=== PATIENT | female | born 1945 | race Caucasian/White ===

== ENCOUNTER 2016-10-24 14:57 | Inpatient (IN) | payer MEDICARE, OTHER ==
[~2016-10-24] VITALS: Ht 170.2 cm; Wt 87.4 kg
[2016-10-24] VITALS (18 sets, daily range): BP systolic 105–141; BP diastolic 69–100; BMI 29.8
--- NOTE | ~2016-10-24 | HEMODYNAMI ---
PATIENT:ASHLEY BULL MEDICAL RECORD: [id number] : 47 LOCATION:[facility] D.CV08 ADMISSION DATE: 10/24/16 Generatedon:10/24/201618:38 Patient name: ASHLEY BULL Patient #: [id number] SSN: [id number] : 1945 Date of study: 10/24/2016 Page: Of Hemodynamic Procedure Report Patient Data Patient Demographics Procedure consent was obtained First Name: ASHLEY Gender: Female Last Name: JORGITO : 1945 Middle Initial: M Age: 71 year(s) Patient #: [id number] Race: SSN: [id number] Additional ID: [id number] Contact details Address: [address] [place] [address] State: [place] City: [place] Zip code: [address] Past Medical History Allergies Allergen Reaction Date Comments Reported Other allergy 11/20/2015 codeine,hydrocodone Other allergy 02/26/2016 Hydrocodone, codeine Admission Admission Data Admission Date: 10/24/2016 Admission Time: 18:36 Admit Source: Emergency department Room #: D.CV08 Procedure Procedure Types Cath Procedure Diagnostic Procedure C [facility] w/Coronaries PCI Procedure Coronary Stent Initial PTCA Initial Miscellaneous Procedures Moderate Sedation up to 15 minutes Procedure Description Procedure Date Procedure Date: 10/24/2016 Procedure Start Time: 16:33 Procedure End Time: 18:36 Procedure Staff Name Function Tereso Bolivar MD Performing Physician Abraham Alegria RT Scrub Jody Mccurdy RN Nurse Raquel Crenshaw RT Monitor Procedure Data Cath Procedure Fluoroscopy Diagnostic fluoroscopy Total fluoroscopy Time: time: 26.9 min 26.9 min Diagnostic fluoroscopy Total fluoroscopy dose: dose: 2402 mGy 2402 mGy Contrast Material Contrast Material Type Amount (ml) Isovue 300 238 Entry Location Entry Primary Successful Side Size Upsize Upsize Entry Closure Succes sful Closure Location (Fr) 1 (Fr) 2 (Fr) Remarks Device Remarks Femoral Right 5 Fr vein Femoral Right 4 Fr 6 Fr artery Short Estimated blood loss: 10 ml Diagnostic catheters Device Type Used For End Catheter Placement Cordis 5Fr JL 4.0 Procedure Catheter (MP) Cordis 5Fr 3DRC Catheter Procedure (MP) Procedure Medications Medication Administration Route Dosage Oxygen NRB 16 l/min Zofran I.V. 2 mg Angiomax (bolus) I.V. 11 ml Angiomax Drip I.V. drip 27 ml/hr (250mg/50ml NS) (Standard) Morphine I.V. 2 mg Morphine I.V. 2 mg Morphine I.V. 2 mg Angiomax Drip 27 ml/hr (250mg/50ml NS) (Standard) 0.9% NaCl I.V. 300 ml/hr Oxygen NC 4 l/min Amiodarone Loading 150 mg Dose (150mg/100ml D5W) Oxygen NRB 16 l/min Hemodynamics Rest Heart Rate: 55 (bpm) Snapshots Pre Cath Intra NCS Post Cath Vital Signs Time Heart Resp SPO2 etCO2 QO6sdgh NIBP (mmHg) Rhythm Pain Sedat ion Rate (ipm) (%) (mmHg) (mmHg) Status Level (bpm) 16:29:17 56 25 86 0 0 116/89(98) SB 0 (11) 10(A) , No pain 16:33:21 55 21 86 0 0 120/92(106) SB 0 (11) 10(A) , No pain 16:37:27 56 24 95 0 0 130/94(107) SB 0 (11) 10(A) , No pain 16:41:36 56 19 97 0 0 129/91(108) SB 0 (11) 10(A) , No pain 16:45:48 57 23 95 0 0 142/84(124) SB 0 (11) 10(A) , No pain 16:50:02 55 20 98 0 0 132/95(107) SB 0 (11) 10(A) , No pain 16:54:14 53 19 98 0 0 133/85(112) SB 0 (11) 10(A) , No pain 16:58:24 57 19 98 0 0 131/95(112) SB 0 (11) 10(A) , No pain 17:02:34 55 21 99 0 0 131/93(107) NSR 0 (11) 10(A) , No pain 17:06:44 63 27 99 0 0 137/94(115) NSR 0 (11) 10(A) , No pain 17:11:43 63 28 98 0 0 Measuring NSR w/ ST 0 (11) 10(A) Elevation , No pain 17:12:13 62 27 99 0 0 120/80(114) NSR w/ ST 0 (11) 10(A) Elevation , No pain 17:17:13 62 25 99 0 0 Measuring NSR w/ ST 0 (11) 10(A) Elevation , No pain 17:18:28 62 19 97 0 0 145/131(140) NSR w/ ST 0 (11) 10(A) Elevation , No pain 17:22:44 68 17 98 0 0 126/92(108) NSR w/ ST 0 (11) 10(A) Elevation , No pain 17:26:54 62 23 98 0 0 115/92(108) NSR w/ ST 0 (11) 10(A) Elevation , No pain 17:31:00 60 21 96 0 0 126/90(106) NSR w/ ST 0 (11) 10(A) Elevation , No pain 17:35:10 67 23 96 0 0 128/91(109) NSR w/ ST 0 (11) 10(A) Elevation , No pain 17:39:22 61 22 94 0 0 118/86(108) NSR w/ ST 0 (11) 10(A) Elevation , No pain 17:43:27 59 16 96 0 0 122/91(109) NSR w/ ST 0 (11) 10(A) Elevation , No pain 17:47:35 59 12 94 0 0 119/89(103) NSR w/ ST 0 (11) 10(A) Elevation , No pain 17:51:45 56 15 95 0 0 114/82(105) SB 0 (11) 10(A) , No pain 17:55:51 58 19 94 0 0 121/87(96) SB 0 (11) 10(A) , No pain 17:59:59 62 24 94 0 0 119/85(102) SB 0 (11) 10(A) , No pain 18:04:09 54 13 94 0 0 122/82(100) SB 0 (11) 10(A) , No pain 18:08:16 56 22 94 0 0 113/79(98) SB 0 (11) 10(A) , No pain 18:12:22 56 27 94 0 0 116/84(100) SB 0 (11) 10(A) , No pain 18:18:25 108 22 98 0 0 122/101(109) A-Fib 0 (11) 10(A) , No pain 18:22:30 130 24 92 0 0 132/106(121) A-Fib 0 (11) 10(A) , No pain 18:26:40 103 21 91 0 0 141/111(121) A-Fib 0 (11) 10(A) , No pain 18:30:50 90 17 99 0 0 133/95(116) A-Fib 0 (11) 10(A) , No pain 18:34:58 78 19 100 0 0 119/94(103) A-Fib 0 (11) 10(A) , No pain Medications Time Medication Route Dose Verified Delivered Reason Note s Effectiveness by by 16:31:28 Oxygen NRB 16 Tereso Buffie Per physician l/min Katt Mccurdy RN, MD 16:32:53 Zofran I.V. 2 mg Tereso Buffie Per physician Katt Mccurdy RN, MD 16:43:35 Angiomax I.V. 11 ml Tereso Buffie for (bolus) Katt Mccurdy RN anticoagulation 16:44:36 Angiomax I.V. drip 27 Tereso Buffie for Drip ml/hr Katt Mccurdy RN anticoagulation (250mg/50ml NS) (Standard) 17:10:50 Morphine I.V. 2 mg Tereso Buffie Katt Mccurdy RN, MD 17:14:18 Morphine I.V. 2 mg Tereso Buffie Katt Mccurdy RN, MD 17:43:05 Morphine I.V. 2 mg Tereso Buffie Katt Mccurdy RN, MD 17:45:01 0.9% NaCl I.V. 300 Tereso Buffie Per physician ml/hr Katt Mccurdy RN, MD 17:45:43 Oxygen NC 4 Tereso Buffie Per physician l/min Katt Mccurdy RN, MD 17:46:07 Angiomax I.V. 27 Tereso Buffie for Drip drip-stopped ml/hr Katt Mccurdy RN anticoagulation (250mg/50ml NS) (Standard) 18:23:40 Oxygen NRB 16 Tereso Buffie for low 02 sats l/min Katt Mccurdy RN, MD 18:25:21 Amiodarone I.V. drip 150 Tereso Vera for arrhythmia Loading Dose over 10 mg Katt Mccurdy RN (150mg/100ml minutes D5W) Procedure Log Time Note 16:14:23 Admit Source: Emergency department 16:14:34 Procedure type changed to Cath procedure, Diagnostic procedure, LHC, LHC w/Coronaries, PCI procedure, Coronary Stent Initial, PTCA Initial, Miscellaneous Procedures, Moderate Sedation up to 15 minutes 16:15:08 Diagnostic Cath status Emergency 16:15:11 Jody Mccurdy RN sent for patient. Start room use. 16:15:12 Time tracking: Call back 16:16:13 Use device set Femoral Dx 16:19:27 Plan of Care:Hemodynamics will remain stable., Cardiac rhythm will remain stable., Comfort level will be maintained., Respiratory function will remain adequate., Patient/ family verbilizes understanding of procedure., Procedure tolerated without complication., Recovers from procedure without complications.. 16:19:34 Patient arrives emergently. 16:22:17 Patient received from ED to CCL 1 Alert and oriented. Tansferred to table in Supine position. 16:22:18 Warm blankets applied, and octavio hugger turned on for patient comfort. 16:22:20 Correct patient and procedure confirmed by team. 16:22:27 Signed procedure consent form obtained from patient. 16:28:19 ECG and BP/O2 sat monitors applied to patient. 16:28:21 Vital chart was started 16:28:22 Baseline sample Acquired. 16:28:27 Full Disclosure recording started 16:28:36 H&P Date Dictated: 10/24/2016 Emergent; H&P N/A. 16:28:37 Pre-procedure instructions explained to patient. 16:28:40 Family in waiting room. 16:28:52 Is patient on blood thinner?No 16:29:02 Snore? Yes 16:29:04 Sleep apnea? No 16:29:09 Dentures? No ? 16:29:20 IV patent on arrival in right hand with 0.9% NaCl at O. 16:29:25 Lab results completed and on chart. 16:29:29 Right groin area was prepped with chlora-prep and draped in sterile fashion 16:29:35 Alarms reviewed by Troy Leon 16:29:36 Sharps counted by scrub and verified by R.N. 16:29:37 Physician arrived 16::38 --------ALL STOP TIME OUT------ 16::39 Final Timeout: patient, procedure, and site verified with staff and physician. All members of the team are in agreement. 16:29:42 Right groin site verified by team. 16:29:50 Sedation plan: IV Moderate Sedation Versed, Fentanyl 16:31:28 Oxygen 16 l/min NRB was administered by Jody Mccurdy RN; Per physician; 16:32:53 Zofran 2 mg I.V. was administered by Jody Mccurdy RN; Per physician; 16:33:04 Zero performed for pressure channel P1 16:33:09 Zero performed for pressure channel P1 16:33:21 Procedure started. 16:33:26 Local anesthetic to right femoral artery with Lidocaine 2% by Tereso Bolivar MD.INITIAL ACCESS ONLY 16:33:32 Zero performed for pressure channel P1 16:33:52 A 5 Fr sheath was inserted into the Right Femoral vein 16:34:01 Acist Syringe opened to sterile field. 16:34:01 Bag Decanter opened to sterile field. 16:34:02 Medline Cath Pack opened to sterile field. 16:34:02 Terumo 5Fr [place] Sheath opened to sterile field. 16:34:03 St Jaswinder 260cm J .035 wire opened to sterile field. 16:34:04 Acist Hand Control opened to sterile field. 16:34:05 Acist Manifold opened to sterile field. 16:34:05 Diagnostic Infinity 5Fr Multipack catheter opened to sterile field. 16:34:08 Tegaderm 4 x 4 opened to sterile field. 16:34:19 Micropuncture VSI 4FR kit opened to sterile field. 16:35:04 A 4 Fr sheath was inserted into the Right Femoral artery 16:37:07 Sheath upsized to a 6 Fr Short. 16:37:31 Terumo 6Fr [place] Sheath opened to sterile field. 16:38:05 A Cordis 5Fr JL 4.0 Catheter (MP) was advanced over the wire and used for Procedure. 16:38:24 LCA angiography performed. 16:43:10 A Cordis 5Fr 3DRC Catheter (MP) was advanced over the wire and used for Procedure. 16:43:13 Catheter removed. 16:43:16 Cordis 6FR XBLAD 4.0 guide catheter opened to sterile field. 16:43:34 Milian BMW Escalante 2 J-tip 300cm 0.014 guide wir opened to sterile field. 16:43:35 Angiomax (bolus) 11 ml I.V. was administered by Jody Mccurdy RN; for anticoagulation; 16:43:55 Merit BasixCompak Inflation Kit opened to sterile field. 16:44:36 Angiomax Drip (250mg/50ml NS) (Standard) 27 ml/hr I.V. drip was administered by Jody Mccurdy RN; for anticoagulation; 16:45:00 Copilot Bleedback Control Valve opened to sterile field. 16:45:28 Inflation number: 1 A Euphora 2.0 x 15 Balloon was prepped and advanced across the Mid CX, then inflated to 13 SAMANTHA for 0:08 (min:sec). 16:45:48 multi inflations 16:45:57 Inflation number: 1 The Euphora 2.0 x 15 Balloon was reinflated across the Ramus, to 13 SAMANTHA for 0:09 (min:sec). 16:49:17 multi inflations 16:49:24 Milian BMW Escalante 2 J-tip 300cm 0.014 guide wir opened to sterile field. 16:50:03 second wire down cx 16:50:48 Inflation number: 2 A Mozec Rx 3.0 x 20 balloon was prepped and advanced across the Ramus, then inflated to 13 SAMANTHA for 0:10 (min:sec). 16:57:27 Milian Whisper J 300cm 0.014 guide wire opened to sterile field. 16:57:49 Balloon removed over the wire. 17:02:43 Whisper Wire advanced across lesion. 17:04:33 Inflation number: 2 The Mozec Rx 3.0 x 20 balloon was reinflated across the Mid CX, to 13 SAMANTHA for 0:10 (min:sec). 17:06:49 Inflation number: 3 The Mozec Rx 3.0 x 20 balloon was reinflated across the Ramus, to 13 SAMANTHA for 0:10 (min:sec). 17:08:12 Inflation number: 4 The Mozec Rx 3.0 x 20 balloon was reinflated across the Ramus, to 5 SAMANTHA for 0:00 (min:sec). 17:09:18 Inflation number: 5 The Mozec Rx 3.0 x 20 balloon was reinflated across the Ramus, to 9 SAMANTHA for 0:00 (min:sec). 17:09:54 Inflation number: 6 The Mozec Rx 3.0 x 20 balloon was reinflated across the Ramus, to 4 SAMANTHA for 0:10 (min:sec). 17:10:50 Morphine 2 mg I.V. was administered by Jody Mccurdy RN; ; 17:14:17 Inflation number: 7 A [place] Sci [place] 2.0 X 15 balloon was prepped and advanced across the Ramus, then inflated to 13 SAMANTHA for 0:00 (min:sec). 17:14:18 Morphine 2 mg I.V. was administered by Jody Mccurdy RN; ; 17:14:32 Inflation number: 8 The [place] Sci [place] 2.0 X 15 balloon was reinflated across the Ramus, to 13 SAMANTHA for 0:00 (min:sec). 17:15:30 Balloon removed over the wire. 17:19:34 Inflation Number: 9 A Milian Mini Vision Rx 2.0 x 28 stent was prepped and advanced across the Ramus. The stent was deployed at 9 SAMANTHA for 0:10 (min:sec). 17:19:45 Stent catheter was removed intact over wire. 17:23:09 Inflation Number: 10 A Milian Mini Vision Rx 2.0 x 18 stent was prepped and advanced across the Ramus. The stent was deployed at 10 SAMANTHA for 0:00 (min:sec). 17:26:05 Balloon removed over the wire. 17:31:06 Inflation number: 11 The [place] Sci [place] 2.0 X 15 balloon was reinflated across the Ramus, to 13 SAMANTHA for 1:30 (min:sec). 17:32:17 Inflation number: 12 The [place] Sci [place] 2.0 X 15 balloon was reinflated across the Ramus, to 13 SAMANTHA for 0:00 (min:sec). 17:40:48 Inflation Number: 1 A Milian Graftmaster 2.80 X 19 stent was prepped and advanced across the Ramus1. The stent was deployed at 9 SAMANTHA for 3:57 (min:sec). 17:40:59 Stent catheter was removed intact over wire. 17:43:05 Morphine 2 mg I.V. was administered by Jody Mccurdy RN; ; 17:45:01 0.9% NaCl 300 ml/hr I.V. was administered by Jody Mccurdy RN; Per physician; 17:45:43 Oxygen 4 l/min NC was administered by Jody Mccurdy RN; Per physician; 17:46:07 Angiomax Drip (250mg/50ml NS) (Standard) 27 ml/hr I.V. drip-stopped was administered by Jody Mccurdy RN; for anticoagulation; 17:51:25 Wire removed. 17:51:49 BMW out of ramus 17:56:42 Suturing sheath in artery and vein 17:57:30 SUTURE SILK 2-0 BLK BR FS 18 I opened to sterile field. 17:57:31 SUTURE SILK 2-0 BLK BR FS 18 I opened to sterile field. 17:58:03 Guide catheter removed. 17:58:27 Procedure ended.(Physican Out) 18:00:42 Fluoroscopy time 26.90 minutes. 18:00:47 Flurop Dose total: 2402 18:00:47 Fluoroscopy dose: 2402 mGy 18:01:12 Contrast amount:Isovue 300 238ml. 18:01:14 Sharps counted by scrub and verified by R.N. 18:01:38 Artery and Vein lines was sutured in with 20 silk. 18:01:43 Insertion/operative site no bleeding no hematoma. 18:01:50 Post Procedure Pulses reassessed and unchanged 18:02:05 Post procedure rhythm: sinus rhythm , w/ ST elevation 18:02:09 Estimated blood loss: 10 ml 18:02:11 Post procedure instruction explained to patient.Patient verbalizes understanding. 18:03:03 Procedure and supply charges have been captured, reviewed, submitted and are correct. 18:23:40 Oxygen 16 l/min NRB was administered by Jody Mccurdy RN; for low 02 sats; 18:25:21 Amiodarone Loading Dose (150mg/100ml D5W) 150 mg I.V. drip over 10 minutes was administered by Jody Mccurdy RN; for arrhythmia; 18:36:21 Vital chart was stopped 18:36:22 See physician's report for complete and final results. 18:36:28 Report given to PCU. 18:36:32 Patient transfered to PCU with Bed. 18:36:34 Procedure ended. 18:36:34 Full Disclosure recording stopped 18:36:40 End room use (Document Last) Intervention Summary Intervention Notes Time ActionType Lesion and Equipment Action# Pressure Duration Attributes Used 16:45:28 Inflate Mid CX Euphora 2.0 1 13 00:08 balloon x 15 Balloon 16:45:57 Reinflate Ramus Euphora 2.0 1 13 00:09 balloon x 15 Balloon 16:50:48 Inflate Ramus Mozec Rx 2 13 00:10 balloon 3.0 x 20 balloon 17:04:33 Reinflate Mid CX Mozec Rx 2 13 00:10 balloon 3.0 x 20 balloon 17:06:49 Reinflate Ramus Mozec Rx 3 13 00:10 balloon 3.0 x 20 balloon 17:08:12 Reinflate Ramus Mozec Rx 4 5 00:00 balloon 3.0 x 20 balloon 17:09:18 Reinflate Ramus Mozec Rx 5 9 00:00 balloon 3.0 x 20 balloon 17:09:54 Reinflate Ramus Mozec Rx 6 4 00:10 balloon 3.0 x 20 balloon 17:14:17 Inflate Ramus [place] Sci 7 13 00:00 balloon [place] 2.0 X 15 balloon 17:14:32 Reinflate Ramus [place] Sci 8 13 00:00 balloon [place] 2.0 X 15 balloon 17:19:34 Place stent Ramus Milian Mini 9 9 00:10 Vision Rx 2.0 x 28 stent 17:23:09 Place stent Ramus Milian Mini 10 10 00:00 Vision Rx 2.0 x 18 stent 17:31:06 Reinflate Ramus [place] Sci 11 13 01:30 balloon [place] 2.0 X 15 balloon 17:32:17 Reinflate Ramus [place] Sci 12 13 00:00 balloon [place] 2.0 X 15 balloon 17:40:48 [address] stent Ramus1 Milian 1 9 03:57 Graftmaster 2.80 X 19 stent Device Usage Item Name Manufacture Quantity Catalog Number [facility] Lot# / Charge Number Stock Stock Serial# Code Acist Syringe Acist 1 88997 518284 920261 653245 Shoppilot Inc Bag Decanter Microtek 1 2001S 635094 89519 437627 Planet Daily. Medline Cath Cardinal 1 [id number] 755682 35574 366952 5 Pack Health Terumo 5Fr Terumo 1 [id number] 246224 800046 415916 [address] Jaswinder 1 425872 845195 496525 240045 30 J .035 wire Acist Hand Acist 1 89474 734565 585802 716718 5 Control Medical Systems Inc Acist Acist 1 91744 684684 099672 227061 5 [facility] Medical Systems Inc Diagnostic Cardinal 1 SH4129 822243 64548 445173 30 Infinity 5Fr Health Multipack catheter Tegaderm 4 x 3M 1 1626W 326151 782869 042895 5 4 Micropuncture VSI VASCULAR 1 7266V 510899 973929 5 VSI 4FR kit SOLUTIONS Terumo 6Fr Terumo 1 [id number] 009984 758233 558402 40 [place] Sheath Cordis 5Fr JL Cardinal 1 477761 5 4.0 Catheter Health (MP) Cordis 5Fr Cardinal 1 015066 5 3DRC Catheter Health (MP) Cordis 6FR Cardinal 1 [id number] 723682 191504 888047 3 XBLAD 4.0 Health guide catheter Milian BMW Milian 2 [id number] 677078 666469 311818 5 Escalante 2 Vascular J-tip 300cm 0.014 guide wir Merit Merit 1 WZ5559 015544 532796 261796 15 Everpix Medical Inflation Kit Copilot Milian 1 7442124 257541 971785 550514 5 Bleedback Vascular Control Valve Euphora 2.0 x Medtronic 1 [id number] 752654 127162 258313 5 [id number] 15 Balloon Milian Milian 1 [id number] 177981 681848 997525 5 Whisper J Vascular 300cm 0.014 guide wire Mozec Rx 3.0 Cardinal 1 [id number] 174850 61132 159692 5 x 20 balloon Health [place] Sci [place] 1 [id number] 305856 993227 384212 1 [id number] [place] 2.0 Scientific X 15 balloon Milian Mini Milian 1 7426051-41 559450 090322 284808 5 [id number] Vision Rx 2.0 Vascular x 28 stent Milian Mini Milian 1 3527156-47 242456 323019 492566 5 [id number] Vision Rx 2.0 Vascular x 18 stent Milian Milian 1 0937505-11 855768 277801 796126 0 [id number] Graftmaster Vascular 2.80 X 19 stent SUTURE SILK Ethicon 2 685H 334474 838383 5 2-0 BLK BR FS 18 I Signature Audit [place] Stage Time Signature Unsigned Intra-Procedure 10/24/2016 Raquel Crenshaw 6:38:33 PM RT(R) Signatures Monitor : Raquel Crenshaw Signature : RT Date : Time : [address] [place] [address]
[~2016-10-24 14:57] MED LIST: ALDACTONE25 MG PO; DIOVAN320 MG PO; MOBIC7.5 MG PO; NORVASC2.5 MG PO; RYTHMOL225 MG PO; STOOL SOFTENER100 M1 PO; TOPROL XL100 MG PO; VITAMIN D31000 UNIT PO; XARELTO20 MG PO
[2016-10-24 16:05] LABS: BASOPHILS 0.2 % (0-2); EOSINOPHILS 1.3 % (0-7); HEMATOCRIT 35.2 % (36.0-48.0); HEMOGLOBIN 10.9 g/dL (12-16); IMMATURE GRANULOCYTES 0.3 % (0-5); LYMPHOCYTES 16.5 % (15-50); MCH 26.1 pg (26.0-34.0); MCV 84.2 fL (80.0-100.0); MEAN PLATELET VOLUME 10.2 fL (7.4-10.4); MONOCYTES 5.2 % (2-11); NEUTROPHILS 76.5 % (40-80); PLATELET COUNT 245 10x3/uL (130-400); RBC 4.18 10x6/uL (4.00-5.40); RDW 18.3 % (11.5-14.5); WBC 11.8 10x3/uL (4.8-10.8)
[2016-10-24 16:14] LABS: ALBUMIN 3.2 g/dL (3.4-5.0); ALKALINE PHOSPHATASE 90 U/L (46-116); ALT (SGPT) 21 U/L (10-68); BILIRUBIN - TOTAL 0.26 mg/dL (0.2-1.3); CALC OSMOLALITY 284 mosm/kg (275-300); CALCIUM 8.6 mg/dL (8.5-10.1); CARBON DIOXIDE 30.4 mmol/L (21.0-32.0); CHLORIDE - SERUM 103 mmol/L (98-107); CREATININE - SERUM 1.1 mg/dL (0.6-1.3); GLUCOSE 169 mg/dL (74-106); POTASSIUM - SERUM 3.9 mmol/L (3.5-5.1); PROTEIN - SERUM 7.3 g/dL (6.4-8.2); SODIUM 137 mmol/L (136-145); UREA NITROGEN 31 mg/dL (7-18); eGFR NON AFRICAN AMERICAN 52 mL/min (90-120)
[2016-10-24 16:29] LABS: CHOL - HDL RATIO 2.8 ratio (2.3-4.1); CHOLESTEROL, TOTAL 236 mg/dL (0-200); CKMB 0.5 U/L (0.0-3.6); CREATINE KINASE 60 UL (21-215); HDL CHOLESTEROL 83 mg/dL (32-96); LDL CHOLESTEROL 143 mg/dL (0-100); LDL-HDL RATIO 1.7 ratio (1.5-3.5); TRIGLYCERIDE 53 mg/dL (30-200)
--- NOTE | 2016-10-24 18:44 | NUR ---
PT ARRIVED AT THIS TIME VIA BED FROM [facility]. RECIEVED REPORT FROM [facility]. PT ALERT AND ORIENTED. CONNECTED TO CONTINUOUS CARDIAC MONITORING. ART LINE IN PLACE. PT HEART RATE AT AFIB. ON NONREBREATHER AT 15 LITERS OXYGEN. CORDARONE DRIP AT 1MG PER ORDERS AND TO RUN FOR [address], URINE YELLOW IN COLOR. VITAL SIGNS: 124/86 PER ART LINE, 76 AFIB, 26 RESPIRATIONS, 98% OXYGEN SATURATION WITH 15L 02 VIA NONREBREATHER. ALSO NS AT 200ML/HOUR PER ORDERS. ALL VIA RT FEMORAL. WILL CONTINUE PLAN OF CARE.
--- NOTE | 2016-10-24 20:10 | NUR ---
AX TEMP 96.3 DEGREES FARENHEIT. JUST ATE A FEW PIECES OF ICE. PLACED ANTONIO HUGGER BLANKET ON TOP OF HER AND STARTED AT 43 DEGREES. FAMILY AT BEDSIDE VISITING.
--- NOTE | 2016-10-24 20:20 | NUR ---
ANTONIO LOZOYA TOO WARM FOR HER, TURNED SETTINGS DOWN TO LOWEST SETTINGS. TEMP STILL BELOW 97 FARENHEIT.
--- NOTE | 2016-10-24 21:31 | NUR ---
PULSES CHECKED AND PEDAL PULSES AUDIBLE BY DOPPLER. C/O PAIN BETWEEN SHOULDER BLADES AND REPORTS PAIN IS AN ACHE LIKE A PULLED MUSCLE AND THAT IT HURT LIKE THIS IN THE PROCEDURE ROOM. DR. BRISEIDA LOMBARDI-NO PAIN MEDS ORDERED.
--- NOTE | 2016-10-24 23:22 | NUR ---
EKG COMPLETED WITH CARDIAC ENZYMES. AFIB NOTED ON 12-LEAD. WILL MONITOR.
--- NOTE | 2016-10-24 23:38 | NUR ---
GETTING NAUSEATED. 100ML OF BROWN, LIQUID EMESIS INTO EMESIS BAG. BEING ASSISTED TO TURN MORE TO LEFT SIDE SINCE LAYING ALMOST FLAT. HOB AT 10 DEGREES. ZOFRAN TO BE GIVEN. CONVERTED TO SINUS RHYTHM ON THE CASING OPERATOR IN THE 50'S. BLOOD PRESSURE VIA A-LINE ALSO DECLINES SOME WITH CHANGE IN HEART RATE. C/O PAIN STILL BETWEEN SHOULDER BLADES. INFORMED OF POSSIBLE NEXT PAIN MED TIME. OFFERED TO REPOSITION, DECLINED. RT GROIN PUNCTURE SITE TO A0LINE/VENOUS PORT SITE WITH SEROSANGUINOUS DRAINAGE COVERING 2X2'S. NO ACTIVE BLEEDING NOTED DRAINING DOWN GROIN DOWN TO BED. CLOTTED, OLD BLOOD NOTED. WILL MONITOR.
[2016-10-24 23:55] LABS: CKMB 279.1 U/L (0.0-3.6)
[2016-10-24 23:58] LABS: CREATINE KINASE 5773 UL (21-215)
[2016-10-25] VITALS (50 sets, daily range): BP systolic 92–139; BP diastolic 60–86
--- NOTE | 2016-10-25 00:22 | NUR ---
DR. GOINS PAGER VIA ANSWERING SERVICES TO INFORM OF DECREASED HR, B/P AND CRITICAL LABS. RETURNED PAGE AND NEW ORDERS NOTED.
--- NOTE | 2016-10-25 00:30 | NUR ---
CORDARONE GTT D/C'ED ORDERED PER DR. GOINS. WILL MONITOR.
--- NOTE | 2016-10-25 00:40 | NUR ---
NAUSEATED THEN VOMITED 50ML OF BROWN, LIQUID EMESIS INTO EMESIS BAG. TURNED TO LEFT SIDE MORE. DOSE OF MORPHINE GIVEN PRESCRIBED FOR PAIN. DESCRIBES PAIN A 7/10 ON NUMBER SCALE BETWEEN SHOULDER BLADES. SEE PAIN ASSESSMENT.
--- NOTE | 2016-10-25 02:00 | NUR ---
ICE PACK APPLIED TO BACK BETWEEN SHOULDER BLADES PER REQUEST. REMAINS IN SINUS BRADYCARDIA RHYTHM IN THE LOWER 50'S. REMAINS OFF CORDARONE GTT.
--- NOTE | 2016-10-25 03:55 | NUR ---
EYES CLOSED. NO ACUTE DISTRESS NOTED.
--- NOTE | 2016-10-25 04:10 | NUR ---
MOVING ARMS AROUND. AWAKE. WANTING A NEW ICE PACK TO POSTERIOR BACK BETWEEN SHOULDER BLADES. OBLIGED. FOELY CATHETER CARE DUE TO OLD, DRIED BLOOD FROM RT GROIN PUNCTURE SITE. CLEANSED PERINEAL AREA AND WHEN DOING SO, GOT NAUSEATED AND TURNED TO LEFT SIDE AND HAD 125ML OF BROWN, SOME PARTICLES EMESIS. CLEANSED FACE, HAND AND LEFT SIDE OF BODY ALSO. DOES NOT WANT TO TAKE OUT OLD SHEETS FROM UNDERNEATH HER AT THIS TIME NOR DOES NOT WANT TO TURN OVER. IV ZOFRAN GIVEN PRESCRIBED. I & O'S COMPLETED. DENIES NEED FOR PAIN MEDS WILL TRY THE ICE FOR NOW. WILL KEEP NPO.
--- NOTE | 2016-10-25 05:00 | NUR ---
AM LABS DRAWN FROM RT FEMORAL A-LINE AFTER WASTING 8ML. 12-LEAD EKG COMPLETED PER YANIQUE WITH R.T. TOLERATED WELL. WILL MONITOR.
[2016-10-25 05:10] LABS: BASOPHILS 0.1 % (0-2); EOSINOPHILS 0 % (0-7); HEMATOCRIT 36.4 % (36.0-48.0); HEMOGLOBIN 11.1 g/dL (12-16); IMMATURE GRANULOCYTES 0.2 % (0-5); MCH 25.6 pg (26.0-34.0); MCHC 30.5 g/dL (31.0-37.0); MCV 84.1 fL (80.0-100.0); MONOCYTES 6.5 % (2-11); NEUTROPHILS 83.2 % (40-80); PLATELET COUNT 270 10x3/uL (130-400); RBC 4.33 10x6/uL (4.00-5.40); RDW 18.4 % (11.5-14.5); WBC 10.8 10x3/uL (4.8-10.8)
--- NOTE | 2016-10-25 06:30 | NUR ---
SHORTLY AFTER IV MORPHINE GIVEN, VOMITED PAST SIDERAIL. BROWN LIQUID WITH SMALL PARTICLE CHUNCKS. CLEANSED FACE. WILL CALL M.D. 0640: DR. GOINS CALLED REGARDING VOMITING-TOTAL OF ABOUT 350ML OVER THE 12 HOUR SHIFT. NEW ORDERS FOR PHENERGAN GIVEN. 0650: PHENERGAN GIVEN AND BED BATH AND LINEN CHANGE COMPLETED. POSTERIOR SKIN INTACT. DR. GOINS CALLED BACK AND D/C'ED IV MORPHINE AND SWITCHED PAIN MANAGEMENT TO DILAUDID. BEGAN TO SHIVER WHILE BATHING AND ANTONIO LOZOYA PLACED BACK ON UNDER HER NEW BLANKETS X2. WILL MONITOR.
[2016-10-25 06:42] LABS: CARBON DIOXIDE 23.3 mmol/L (21.0-32.0); CHLORIDE - SERUM 103 mmol/L (98-107); CKMB 286.8 U/L (0.0-3.6); CREATININE - SERUM 1.1 mg/dL (0.6-1.3); POTASSIUM - SERUM 4.7 mmol/L (3.5-5.1); SODIUM 137 mmol/L (136-145); UREA NITROGEN 30 mg/dL (7-18)
[2016-10-25 06:45] LABS: CREATINE KINASE 5421 UL (21-215); TROPONIN-I 243.183 ng/mL (0.000-0.060)
--- NOTE | 2016-10-25 08:36 | NUR ---
0715-RECIEED ASLEEP -STATES VERBALLY NO CHEST PAIN AT THIS [id number] JUGULAR DISTENTION-AUDIBLE ONLY S1S2 AND NO ADDITIONAL SOUND AT THIS TIME-R FEM PHIL IN PLACE/ VENOUSSALINE LOCKED-SITE SOFT TO TOUCH 0815-DR GOINS AT [facility] AND REVIEWED PT -DIRECTION GIVEN-PHIL REMAIN IN PLACE FOR ABP MONITORING WITH PLAN FOR REMOVAL IN AFTERNOON HOURS IF PT REMAINS STABLE -PT REMAINS ASLEEP AT THIS TIME
--- NOTE | 2016-10-25 09:48 | OP ---
PATIENT NAME: ASHLEY BULL MEDICAL RECORD: [id number] :47 LOCATION:[facility] ADMISSION DATE:10/24/16 SURGEON: TERESO GOINS MD DATE OF OPERATION: 10/24/2016 PROCEDURE: Left heart cath, LV gram, coronary angiogram, PTCA times 4, intra-arterial stenting times 3. RAILROAD AUDITOR: Tereso Goins MD PROCEDURE IN DETAIL: The patient was brought in an unstable condition with hypotension and malignant dysrhythmias into the cardiac catheterization, chest pain 8/10 and cardiogenic shock. The patient was placed on catheterization table in a supine position where the right groin was sterilely prepped and draped. We then accessed the right femoral vein as well as the right femoral artery using modified Seldinger technique in an anterograde and retrograde fashion respectively. We were then able to intubate the right coronary artery. Angiography was performed in multiple projections. We were then able to exchange the diagnostic catheters for interventional guiding catheters and we were able to intubate the left main. We were then able to take a BMW wire into the circumflex vessel and then into the ramus intermediate vessel. We were able to get distal wire position in the circumflex as well as the ramus vessel and/or itself. Multiple angioplasties were performed and the procedure was terminated partially successfully. FINDINGS: 1. Left main has mild distal plaquing. 2. The LAD is shown to have an ostial 50% to 60% stenosis. 3. The circumflex is 100% occluded flushly at the ostium. 4. The RCA is shown to be widely patent. INTERVENTION: After a double wire technique through the circumflex and the ramus intermediate vessel, we were able to reestablish flow. An angioplasty was performed in multi-layer fashion reestablishing very good brisk JUAN FRANCISCO 3 flow in the circumflex vessel and the terminal obtuse marginal branch; however, we had a heavy thrombus burden in the ramus intermediate branch and after distal angioplasty with a 3-0 balloon going up to only 3 atmospheres, we created a dissection and actually a tear in the distal ramus vessel. The patient hemodynamically was stable through that process, but to cover it, we put 2 overlapping 2.5 x 28 and 2.5 x 18 stents and then in the middle of those stents, we put a Jomed covered stent, which then did show some resolve of the mid ramus vessel dissection; however, we had continued dissection in the distal vessel. We then decided to turn off the anticoagulation and do prolonged inflations in the balloon in that vessel with the thought that we would either tamp the dissection and the transection and limit the dye extravasation or thrombose the vessel itself. The vessel did thrombose. The patient hemodynamically was very stable and the circumflex continued to have good flow and although we did call the surgeon in, it was felt that the patient was very stable by the time the surgeon was here and after consultation with the surgeon, we decided to watch the patient carefully. A bedside echocardiography was performed showing that the patient had fairly well preserved LV function with ejection fraction of 45%. There is OPERATIVE REPORT [id number] ASHLEY BULL Olena inferolateral, anterior and posterior hypokinesis. The mitral valve itself did not appear to have significant mitral regurgitation at that point. We decided to go ahead and admit the patient for good observation. IMPRESSION: A 100% occlusion of the circumflex and ramus intermediate branch with successful angioplasty of the circumflex vessel, but with poor outcome in the [place] ramus itself. We did notice at the end of the procedure; however, that there was also some spasm in the ostial LAD segment and we felt like we should watch that more closely for any signs of ischemia and potentially even bring the patient back within 2-3 days based upon clinical response. Angiomax was turned off. We will continue the Plavix and the aspirin. TRANSINT:[id number] Voice Confirmation ID: [id number] DOCUMENT ID: [id number] TERESO GOINS MD at 0948 CC: [id number] DICTATION DATE: 10/24/16 1846 WEB SITE PROJECT MANAGER: 10/24/16 1933 ADM IN [facility] [address] [id number]
[2016-10-25 11:42] LABS: CKMB 266.2 U/L (0.0-3.6)
[2016-10-25 11:43] LABS: CREATINE KINASE 5522 UL (21-215)
--- NOTE | 2016-10-25 19:00 | NUR ---
Received patient resting in bed with eyes closed, assessment completed per flowsheet. Patient AO x4, calm and cooperative. Eyes PERRLA @ 4mm with brisk response, sclera is white. S1/S2 noted NSR on telemetry with HR 84, rhythmic and regular. Breathing is even and unlabored on 2L via NC with O2 sat 99%, Lung sounds clear bilateral upper and mid with diminished lower. Abdomen is soft and flat with bowel sounds active x4, non-tender. R groin femoral A-line noted with dressing CDI, no bleeding/drainage noted and tender to palpation. A-line zeroed with good waveform on monitor. Bhatti secured in place, jaida urine noted in collection. Upper extremity pulses bounding with lower extremity weakly palpable, slight weakness noted all extremities. Skin is warm and dry to touch, cap refill < 3 sec. R hand 20g PIV noted with NS @ KVO (10ml/hr), dressing CDI. Patient c/o constant aching/tight chest pain /10, will provide PRN medication when available. Patient provided ice chips upon request, denies further needs at this time. All VSS and will continue to monitor.
--- NOTE | 2016-10-25 21:00 | NUR ---
Patient resting in bed with eyes closed, breathing is even and unlabored. Patient denies needs at this time, all VSS and will continue to monitor.
--- NOTE | 2016-10-25 23:00 | NUR ---
Reassessment completed per flowsheet, patient resting in bed with eyes closed. S1/S2 noted NSR on telemetry with HR 92, rhythmic and regular. Breathing is even and unlabored on 2L via NC, O2 sat 100%. A-line dressing CDI with good waveform on monitor, no bleeding/drainage with site soft to palpation. Patient rates constant aching pain 4/10 in chest, patient denies need for medication at this time and will provide upon request. Upper pulses bounding with lower extremity weakly palpable, skin is warm/dry to touch with cap refill < 3 sec. No further needs at this time, all VSS and will continue to monitor.
[2016-10-26] VITALS (17 sets, daily range): BP systolic 100–125; BP diastolic 56–97; Ht 170.2 cm; Wt 87.4 kg
--- NOTE | 2016-10-26 01:00 | NUR ---
Patient resting in bed with eyes closed, breathing is even and unlabored. Patient repositioned for comfort, denies other needs at this time. All VSS and will continue to monitor.
--- NOTE | 2016-10-26 01:45 | NUR ---
Patient awake in bed c/o constant chest pain 09/21, PRN medication provided and ice bag applied to upper back for pain relief. Patient disoriented to time, but aware of circumstances and location. Reoriented and education provided on pain medication availability, patient states understanding. Will reassess PRN medication per protocol, all VSS and will continue to monitor.
--- NOTE | 2016-10-26 02:25 | NUR ---
Lovenox held, sheath to be removed this AM. Will notify Dr Bolivar this morning.
--- NOTE | 2016-10-26 02:59 | NUR ---
Reassessment completed per flowsheet, patient resting in bed with eyes closed. S1/S2 noted NSR on telemetry with HR 99, rhythmic and regular. Breathing is even and unlabored on 2L via NC, O2 sat 96%. Upper pulses palpable with lower pulses weakly palpable, cap refill < 3 sec with skin warm/dry to touch. R femoral A-line dressing CDI, zeroed with good waveform on telemetry. Patient resting after PRN medication given, rates pain 3/10 constant chest. No further needs at this time, all VSS and will continue to monitor.
--- NOTE | 2016-10-26 05:00 | NUR ---
Patient resting in bed with eyes closed, no AM labs scheduled today. Patient provided ice chips upon request, repositioned for comfort. All pulses weakly palpable with skin cool/dry to touch, cap refill < 3 sec. Warm blanket provided and patient states she is "comfortable". No further needs at this time, all VSS and will continue to monitor.
--- NOTE | 2016-10-26 06:05 | NUR ---
Patient appears to be having regular PAC's on telemetry, STAT labs ordered to check potassium levels.
--- NOTE | 2016-10-26 06:27 | NUR ---
Spoke to Dr Bolivar, notified about patient having regular PAC's. New orders received for Cordarone 200mg PO BID, also to hold Lovenox for sheath removal today. Lab collected sample and will review when resulted. Will continue to monitor.
--- NOTE | 2016-10-26 06:30 | NUR ---
Patient HR V-Tach/V-Fib on telemetry, Dr Bolivar notified. 150mg bolus Codarone given, 300mg Bolus to be given upon completion. O2 increased to 6L via NC per orders.
[2016-10-26 06:32] LABS: BASOPHILS 0.1 % (0-2); EOSINOPHILS 0.1 % (0-7); HEMOGLOBIN 10.2 g/dL (12-16); IMMATURE GRANULOCYTES 0.4 % (0-5); LYMPHOCYTES 9.9 % (15-50); MCH 25.8 pg (26.0-34.0); MCV 85.9 fL (80.0-100.0); MEAN PLATELET VOLUME 10.9 fL (7.4-10.4); MONOCYTES 12.3 % (2-11); NEUTROPHILS 77.2 % (40-80); RBC 3.96 10x6/uL (4.00-5.40); RDW 18.9 % (11.5-14.5)
[2016-10-26 06:35] LABS: PLATELET COUNT 197 10x3/uL (130-400); WBC 13.6 10x3/uL (4.8-10.8)
--- NOTE | 2016-10-26 06:50 | NUR ---
Dr Bolivar arrived in patient room, assumed care of patient. Report given to Akua LONGO, care assumed by oncoming shift.
[2016-10-26 06:55] LABS: ALBUMIN 2.6 g/dL (3.4-5.0); ANION GAP 9.9 mmol/L (8-16); BILIRUBIN - TOTAL 0.37 mg/dL (0.2-1.3); CALCIUM 8.3 mg/dL (8.5-10.1); CARBON DIOXIDE 28.6 mmol/L (21.0-32.0); CREATININE - SERUM 1.2 mg/dL (0.6-1.3); POTASSIUM - SERUM 4.5 mmol/L (3.5-5.1); PROTEIN - SERUM 6.7 g/dL (6.4-8.2)
[2016-10-26 07:32] LABS: CKMB 68.5 U/L (0.0-3.6); CREATINE KINASE 3706 UL (21-215)
[2016-10-26 07:34] LABS: TROPONIN-I 110.722 ng/mL (0.000-0.060)
--- NOTE | 2016-10-26 12:30 | NUR ---
ATRIAL RHYTHM NOTED. HR 140. LOPRESSOR 2.5MG ORDERED.
--- NOTE | 2016-10-26 15:31 | NUR ---
DR GOINS CALLED FOR ATRIAL RHYTHM. LANOXIN 0.5 MG ORDERED.
--- NOTE | 2016-10-26 16:00 | NUR ---
DR GOINS HERE ASSESSING PT.
--- NOTE | 2016-10-26 17:30 | NUR ---
BATH GIVEN LINENS CHANGED.
--- NOTE | 2016-10-26 18:00 | NUR ---
DAUGHTER AT BEDSIDE ASK FOR UPDATE. WALKED IN ROOM PT HAVING L SIDED DROOPING MOUTH. L SIDED WEAKNESS IN ARM. L PARALYSIS IN LEG. DR GOINS CALLED. NOT A CANDIDATE FOR AR SAVES. LAST KNOWN TIME OF PT BEING OK IS 1729. CT OF HEAD ORDERED. DR FOREMAN CALLED PER DR GOINS.
[2016-10-26 18:08] LABS: CKMB 28.1 U/L (0.0-3.6)
[2016-10-26 18:19] LABS: CREATINE KINASE 3223 UL (21-215)
[2016-10-26 18:22] LABS: TROPONIN-I 81.303 ng/mL (0.000-0.060)
--- NOTE | 2016-10-26 18:30 | NUR ---
TO CT PER ALENA KENDALL RN.
--- NOTE | 2016-10-26 18:30 | NUR ---
DR FOREMAN AT BEDSIDE IN CT.
--- NOTE | 2016-10-26 19:15 | NUR ---
PT GOING TO [facility]. REPORT CALLED TO NIDIA LONGO. PT WILL GO VIA SURVIVAL FLIGHT.
--- NOTE | 2016-10-26 19:23 | NUR ---
1800 ENTRY PER ALENA KENDALL.
--- NOTE | 2016-10-26 20:15 | NUR ---
SURVIVAL FLIGHT AT BEDSIDE, PT BEING TRANSFERRED TO [facility]
== END 2016-10-26 19:50 | disposition short-term general hospital (02) | DRG 248 ==
LOC: D.ER 14:57 → D.CATH 14:57 → EDSTATUS 16:01 → D.CVICU 18:36 → OBSVTIME 18:36 → D.CVICU 19:00
PROVIDERS: Emergency Medicine; ADMIT Internal Medicine Cardiovascular Disease
PROC: 4A023N7 Measurement of Cardiac Sampling and Pressure, Left Heart, Percutaneous Approach (ICD-10-PCS; 2016-10-24)
PROC: B2151ZZ Fluoroscopy of Left Heart using Low Osmolar Contrast (ICD-10-PCS; 2016-10-24)
PROC: B2111ZZ Fluoroscopy of Multiple Coronary Arteries using Low Osmolar Contrast (ICD-10-PCS; 2016-10-24)
PROC: 02703FZ Dilation of Coronary Artery, One Artery with Three Intraluminal Devices, Percutaneous Approach (ICD-10-PCS; principal; 2016-10-24 16:15)
PROC: 02723ZZ Dilation of Coronary Artery, Three Arteries, Percutaneous Approach (ICD-10-PCS; 2016-10-24 16:15)
DX: I21.3 ST elevation (STEMI) myocardial infarction of unspecified site (principal); R57.0 Cardiogenic shock; I63.511 Cerebral infarction due to unspecified occlusion or stenosis of right middle cerebral artery; I47.2 Ventricular tachycardia; I48.92 Unspecified atrial flutter; I25.10 Atherosclerotic heart disease of native coronary artery without angina pectoris; I10 Essential (primary) hypertension; I48.91 Unspecified atrial fibrillation; I34.0 Nonrheumatic mitral (valve) insufficiency; I95.9 Hypotension, unspecified; Z86.73 Personal history of transient ischemic attack (TIA), and cerebral infarction without residual deficits; E11.40 Type 2 diabetes mellitus with diabetic neuropathy, unspecified